=== PATIENT | male | born 1965 | race Caucasian/White ===

== ENCOUNTER 2018-08-31 14:27 | Emergency (ER) | payer MEDICAID ==
[~2018-08-31] VITALS: Ht 188 cm; Wt 140.6 kg
--- NOTE | 2018-08-31 14:46 | NUR ---
Pt walked to room with this RN. EKG done in triage.
--- NOTE | 2018-08-31 14:53 | NUR ---
Dr. Razo at bedside to evaluate pt. Pt states that he has been sick ever since he changed jobs and now works with [employer], pt states that he only wears a bandana for respiratory protection. Pt also c/o diarrhea x 2 days, denies N/V/fevers.
[2018-08-31] MEDS ORDERED: ALBUTEROL/IPRATROPIUM 2.5MG/0.5MG, 3 ML NPPB ONE (15:00)
--- NOTE | 2018-08-31 15:06 | NUR ---
Pt ambulated to XR with tech.
--- NOTE | 2018-08-31 15:15 | NUR ---
Pt ambulated after XR to bathroom and now back to room.
[2018-08-31 15:32] LABS: BASOPHILS # (AUTO) 0.03 x10^3/uL (0-0.1); BASOPHILS % (AUTO) 1 % (0-1); EOSINOPHILS # (AUTO) 0.06 x10^3/uL (0-0.4); EOSINOPHILS % (AUTO) 1 % (1-7); LYMPHOCYTES # (AUTO) 1.47 x10^3/uL (1-3.4); LYMPHOCYTES % (AUTO) 26 % (22-44); MD NO; MEAN CORPUSCULAR HEMOGLOBIN 32.3 pg (27.5-34.5); MEAN CORPUSCULAR HGB CONC 32.5 g/dL (33.2-36.2); MEAN CORPUSCULAR VOLUME 99.4 fL (81-97); MEAN PLATELET VOLUME 8.6 fL (7.4-10.4); MONOCYTES # (AUTO) 0.89 x10^3/uL (0.2-0.8); MONOCYTES % (AUTO) 15 % (2-9); NEUTROPHILS # (AUTO) 3.31 x10^3/uL (1.8-6.8); NEUTROPHILS % (AUTO) 58 % (42-75); PLATELET COUNT 161 x10^3/uL (130-400); RED BLOOD COUNT 5.77 x10^6/uL (4.38-5.82); RED CELL DISTRIBUTION WIDTH 14.1 % (9.4-14.8)
[2018-08-31] MEDS ORDERED: ALBUTEROL/IPRATROPIUM 2.5MG/0.5MG, 3 ML ONE (15:36)
[2018-08-31 15:41] LABS: ALBUMIN 3.5 g/dL (3.4-5.0); ANION GAP 6 mmol/L (5-15); CHLORIDE 111 mmol/L (98-107)
[2018-08-31 15:45] LABS: TROPONIN I < 0.015 ng/mL (0.000-0.045)
[2018-08-31 16:19] VITALS: BP 176/105
== END 2018-08-31 16:21 | disposition home or self-care (01) ==
LOC: ED 14:54
DX: J98.01 Acute bronchospasm (principal); I10 Essential (primary) hypertension; J44.9 Chronic obstructive pulmonary disease, unspecified; Z96.659 Presence of unspecified artificial knee joint
CPT/HCPCS: 36415; 71046; 80048; 82040; 84484; 85025; 93005; 94640; 99284; J7512; J7620

== ENCOUNTER 2018-10-01 07:45 | Emergency (ER) | payer MEDICAID ==
[~2018-10-01] VITALS: Ht 188 cm; Wt 143.1 kg
[2018-10-01] MEDS ORDERED: ONDANSETRON 2MG/ML, 2ML ONE (08:20)
[2018-10-01] MEDS ORDERED: KETOROLAC 30 MG/1 ML ONE (08:20)
[2018-10-01] MEDS ORDERED: MORPHINE SULFATE 4 MG/ML, 1ML ONE ×2 (08:21→09:09)
[2018-10-01 08:23] LABS: BASOPHILS # (AUTO) 0.02 x10^3/uL (0-0.1); BASOPHILS % (AUTO) 0 % (0-1); EOSINOPHILS % (AUTO) 2 % (1-7); LYMPHOCYTES # (AUTO) 0.99 x10^3/uL (1-3.4); LYMPHOCYTES % (AUTO) 17 % (22-44); MD NO; MEAN CORPUSCULAR HEMOGLOBIN 31.9 pg (27.5-34.5); MEAN CORPUSCULAR HGB CONC 32.6 g/dL (33.2-36.2); MEAN CORPUSCULAR VOLUME 97.8 fL (81-97); MEAN PLATELET VOLUME 8.8 fL (7.4-10.4); MONOCYTES # (AUTO) 0.72 x10^3/uL (0.2-0.8); MONOCYTES % (AUTO) 12 % (2-9); NEUTROPHILS # (AUTO) 4.17 x10^3/uL (1.8-6.8); NEUTROPHILS % (AUTO) 70 % (42-75); PLATELET COUNT 174 x10^3/uL (130-400); RED BLOOD COUNT 5.75 x10^6/uL (4.38-5.82); RED CELL DISTRIBUTION WIDTH 13.9 % (9.4-14.8)
[2018-10-01] MEDS: MORPHINE SULFATE 4 MG/ML, 1ML IVPush PRN ×2 (08:27→09:16)
[2018-10-01] MEDS ORDERED: SODIUM CHLORIDE FLUSH 10ML SYR IVF ONE (08:30)
[2018-10-01] MEDS ORDERED: ONDANSETRON 2MG/ML, 2ML IVPush ONE (08:30)
[2018-10-01] MEDS ORDERED: KETOROLAC 30 MG/1 ML IVPush ONE (08:30)
[2018-10-01 08:34] LABS: ALBUMIN 3.5 g/dL (3.4-5.0); ANION GAP 4 mmol/L (5-15); CALCIUM 8.8 mg/dL (8.5-10.1); CHLORIDE 108 mmol/L (98-107)
[2018-10-01 08:38] LABS: ALANINE AMINOTRANSFERASE 53 U/L (12-78); ALKALINE PHOSPHATASE 80 U/L (45-117); BILIRUBIN,TOTAL 0.9 mg/dL (0.2-1.0); CREATININE 1.04 mg/dL (0.7-1.3); TOTAL PROTEIN 6.9 g/dL (6.4-8.2)
--- NOTE | 2018-10-01 09:50 | NUR ---
REPORT RECEIVED FROM FIORELLA GEORGE
[2018-10-01] MEDS ORDERED: OXYcodone/APAP 5/325MG TABLET ONE (10:53)
[2018-10-01] MEDS ORDERED: OXYcodone/APAP 5/325MG TABLET PO ONE (11:00)
--- NOTE | 2018-10-01 11:00 | NUR ---
PATIENT REPORTING CONTINUED LEFT GROIN PAIN REFRACTORY TO EARLIER MEDICATION-RATED AT 8/10. BLOOD PRESSURE ALSO NOTED TO BE ELEVATED WELL CONTINUED OXYGEN NEED. PROVIDER MADE AWARE MEDICATED PER EMAR
[2018-10-01 11:13] LABS: MICROSCOPIC AUTO
[2018-10-01 11:16] LABS: CULTURE INDICATED? NO
[2018-10-01] MEDS ORDERED: LISINOPRIL 10 MG TABLET ONE (11:34)
--- NOTE | 2018-10-01 11:37 | NUR ---
BLOOD PRESSURE REMAINS ELEVATED (216/151)-PROVIDER MADE AWARE D/C ORDERS UP. TO START LISINOPRIL NOW AND ARRANGE F/U
--- NOTE | 2018-10-01 11:44 | NUR ---
EDUCATED ON WHAT TO WATCH FOR IN R/T LISINOPRIL ADMINISTRATION. ALSO ADVISED TO INCREASE HYDRATION/LIMIT ETOH/ILLICITS AND SMOKING. ADVISED TO RETURN TO ED IF SXS DONT IMPROVE
--- NOTE | 2018-10-01 11:48 | NUR ---
PATIENT DISCHARGED VIA BUS TO HOME DESPITE RECENT B/P MEDICATION ADMINISTRATION WELL NARCOTIC ADMINISTRATION. 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 LISINOPRIL NOT A NEW MEDICATION FOR PATIENT (HAS TAKEN PRIOR) AND NOT OVER-MEDICATED (PAIN MEDICATION) PER WRITERS EXAM. PATIENT SAFE FOR DISCHARGE
[2018-10-01 11:51] VITALS: BP 186/71
[2018-10-01] MEDS ORDERED: LISINOPRIL 10 MG TABLET PO ONE (12:00)
== END 2018-10-01 11:55 | disposition home or self-care (01) ==
LOC: ED 09:27
DX: S39.013A Strain of muscle, fascia and tendon of pelvis, initial encounter (principal); I10 Essential (primary) hypertension; R10.32 Left lower quadrant pain; J44.9 Chronic obstructive pulmonary disease, unspecified; X58.XXXA Exposure to other specified factors, initial encounter; Y93.89 Activity, other specified; Y92.89 Other specified places as the place of occurrence of the external cause; Y99.8 Other external cause status
CPT/HCPCS: 36415; 74176; 80053; 81001; 85025; 96374; 96375; 96376; 99284; J1885; J2405

== ENCOUNTER 2018-10-04 10:46 | Emergency (ER) | payer MEDICAID, OTHER ==
--- NOTE | 2018-10-04 11:50 | NUR ---
PT TO SCAN IN NAD
[2018-10-04] MEDS ORDERED: OXYcodone/APAP 5/325MG TABLET ONE (11:54)
[2018-10-04] MEDS ORDERED: OXYcodone/APAP 5/325MG TABLET PO ONE (12:00)
[2018-10-04 12:01] LABS: MICROSCOPIC AUTO
[2018-10-04 12:04] LABS: CULTURE INDICATED? NO
--- NOTE | 2018-10-04 12:26 | NUR ---
PT RETURNED FROM SCAN IN [facility], MEDICATED PER AUG, AWAITING BLOODWORK & US READ. PT REPORTS NO NEEDS AT THIS TIME, WCTM.
[2018-10-04 12:55] LABS: ALBUMIN 3.2 g/dL (3.4-5.0); ANION GAP 5 mmol/L (5-15); BASOPHILS # (AUTO) 0.03 x10^3/uL (0-0.1); BASOPHILS % (AUTO) 0 % (0-1); CALCIUM 8.7 mg/dL (8.5-10.1); CHLORIDE 108 mmol/L (98-107); EOSINOPHILS # (AUTO) 0.05 x10^3/uL (0-0.4); EOSINOPHILS % (AUTO) 0 % (1-7); LYMPHOCYTES % (AUTO) 10 % (22-44); MD NO; MEAN CORPUSCULAR HEMOGLOBIN 31.6 pg (27.5-34.5); MEAN CORPUSCULAR HGB CONC 32.2 g/dL (33.2-36.2); MEAN CORPUSCULAR VOLUME 98.3 fL (81-97); MEAN PLATELET VOLUME 9.1 fL (7.4-10.4); MONOCYTES # (AUTO) 1.12 x10^3/uL (0.2-0.8); MONOCYTES % (AUTO) 10 % (2-9); NEUTROPHILS # (AUTO) 8.49 x10^3/uL (1.8-6.8); NEUTROPHILS % (AUTO) 79 % (42-75); PLATELET COUNT 162 x10^3/uL (130-400); RED BLOOD COUNT 5.53 x10^6/uL (4.38-5.82); RED CELL DISTRIBUTION WIDTH 13.9 % (9.4-14.8)
--- NOTE | 2018-10-04 13:05 | NUR ---
Task RN: Oxygen saturation 79% on room air while sleeping, patient awakened and oxygen saturation increased to 90% on room air while talking. Supplemental oxygen provided via nasal cannula @3LPM as patient is dozing intermittently. Addendum: 10/04/[address] Mercado notified.
--- NOTE | 2018-10-04 13:10 | NUR ---
TASK RN: Patient up to restroom to urinate for post void residual check
--- NOTE | 2018-10-04 13:22 | NUR ---
Post void residual 0mL, Dr. Mercado notified.
--- NOTE | 2018-10-04 14:00 | NUR ---
PT IN BED, MD JOELLE ASH AT BEDSIDE TO MD BAM CONSULTING W/ UROLOGY, AWAITING DISPO. WCTM.
[2018-10-04 14:52] VITALS: BP 141/98
== END 2018-10-04 14:57 | disposition home or self-care (01) ==
LOC: ED 11:31
DX: N50.812 Left testicular pain (principal); J44.9 Chronic obstructive pulmonary disease, unspecified; I10 Essential (primary) hypertension
CPT/HCPCS: 36415; 76870; 80048; 81001; 82040; 85025; 99284

== ENCOUNTER 2018-11-25 14:13 | Emergency (ER) | payer MEDICAID ==
[~2018-11-25] VITALS: Ht 185.4 cm; Wt 113.6 kg
[2018-11-25 14:49] LABS: BASOPHILS # (AUTO) 0.02 x10^3/uL (0-0.1); BASOPHILS % (AUTO) 0 % (0-1); EOSINOPHILS # (AUTO) 0.12 x10^3/uL (0-0.4); EOSINOPHILS % (AUTO) 2 % (1-7); LYMPHOCYTES # (AUTO) 1.14 x10^3/uL (1-3.4); LYMPHOCYTES % (AUTO) 17 % (22-44); MD NO; MEAN CORPUSCULAR HEMOGLOBIN 31.2 pg (27.5-34.5); MEAN CORPUSCULAR VOLUME 97.6 fL (81-97); MEAN PLATELET VOLUME 9.4 fL (7.4-10.4); MONOCYTES # (AUTO) 0.78 x10^3/uL (0.2-0.8); MONOCYTES % (AUTO) 11 % (2-9); NEUTROPHILS # (AUTO) 4.87 x10^3/uL (1.8-6.8); NEUTROPHILS % (AUTO) 70 % (42-75); PLATELET COUNT 180 x10^3/uL (130-400); RED BLOOD COUNT 5.59 x10^6/uL (4.38-5.82); RED CELL DISTRIBUTION WIDTH 14.1 % (9.4-14.8)
--- NOTE | 2018-11-25 14:50 | NUR ---
BIB EMS PT SOMNULENT, ARROUSES TO AGGRESSIVE VERBAL STIMULI, FOLLOWS COMMANDS WITH REPEATED INSTRUCTIONS AND ENCOURAGEMENT. SPEECH IS VERY GARBLED BUT IT SOUNDS LIKE HE TOOK 5, 10MG XANAX BUT I CAN'T TELL WHAT HE IS SAYING TO AT WHAT TIME. PT RESP TACHYPNIC 26-30 RA PULSE OX 84% - 88% WITH PERIODS OF APNEA NOTED. 02 3L NC PLACED WITH EFFECT AND SP02 MAINTAINING AT 92-93%. PT ON MONITORS FOR ECG, PULSE OX AND BP. SITTER AT DOORWAY WITH PT IN VIEW. PT WAS ALREADY UNDRESSED AND LAYING ON GURNEY WHEN THIS RN ARRIVED AT BEDSIDE. JALYN RN HAD ASSISSTED PT IN GETTING UNDRESSED AND PLACED HIS BELONGINGS IN A PATIENT BAG. BAG LABLED AND PLACED IN LOCKER. SBAR RPT TO ARIEL HOUGH
[2018-11-25 14:59] LABS: ALBUMIN 2.9 g/dL (3.4-5.0); ANION GAP 6 mmol/L (5-15); CALCIUM 8.2 mg/dL (8.5-10.1); CHLORIDE 107 mmol/L (98-107); CREATININE 0.77 mg/dL (0.7-1.3)
[2018-11-25 15:00] LABS: SALICYLATE LEVEL < 1.7 mg/dL (2.8-20.0)
--- NOTE | 2018-11-25 15:58 | NUR ---
PT ALTERNATES BETWEEN VERY EMOTIONAL AND VERY DROWSY. PT UPSET THAT "SOMEONE TOOK HIS FOOD." PT HAS NOT BEEN GIVEN ANY FOOD YET DURING THIS STAY. PT THEN QUICKLY FALLS ASLEEP. DINNER TRAY ORDERED AT THIS TIME. URINAL PROVIDED AT BS. NO OTHER REQUESTS NOW. PT RESTING WITH EYES CLOSED AND LIGHTS DIMMED IN SECURED ROOM. ALL VSS ON RA. SITTER AT DOOR WAY FOR CONTINUOUS MONITORING.
--- NOTE | 2018-11-25 16:45 | NUR ---
PT DOZING, SIDE RAILS UP X2, MONITORING ON. SITTER AT DOORWAY.
--- NOTE | 2018-11-25 17:36 | NUR ---
PT RESTING IN SECURED ROOM WTIH EYES CLOSED AND LIGHTS DIMMED. SITTER AT DOORWAY.
--- NOTE | 2018-11-25 18:40 | NUR ---
FOOD TRAY PROVIDED. PT RESTING IN SECURED ROOM. PT DROWSY AT THIS TIME. SITER AT DOORWAY.
--- NOTE | 2018-11-25 19:13 | NUR ---
PT RESTING IN SECURED ROOM WTIH EYES CLOSED AND LIGHTS DIMMED. SITTER AT DOORWAY. STILL AWAITING URINE SAMPLE.
--- NOTE | 2018-11-25 20:00 | NUR ---
PT VERY DROWSY AT THIS TIME. ARROUSABLE ONLY TO LOUD VOICES. WHEN AWOKEN, PT MUMBLES A FEW WORDS AND IMMEDIATELY FALLS BACK TO SLEEP. PT UNABLE TO PROVIDE URINE SAMPLE AT THIS TIME. PT REMAINS CONNECTED TO MONITORS. VSS. SITTER AT DOORWAY FOR CONTINUOUS OBSERVATION.
--- NOTE | 2018-11-25 20:38 | NUR ---
SOC referral initiated.
--- NOTE | 2018-11-25 20:41 | NUR ---
pt stood at eob with assistance from 2 male staff to urinate. pt able to provide sample and sample walked to lab by this rn. pt very agitated, screaming and cussing at staff. pt upset that he did not receive dinner even though his dinner plate was behind him. pt given dinner tray and is currently eating in his room. pt continues to scream and talk to himself, but is more pleasant with staff at this time. pt provided with milk and water per request. vss. awaiting telepsych.
[2018-11-25 20:57] LABS: AMPHETAMINE SCREEN, URINE Positive (Negative); BARBITURATE SCREEN, URINE Negative (Negative); BENZODIAZEPINE SCREEN, URINE Positive (Negative); CANNABINOID SCREEN, URINE Negative (Negative); COCAINE SCREEN, URINE Negative (Negative); METHADONE SCREEN, URINE Negative (Negative); OPIATE SCREEN, URINE Negative (Negative)
[2018-11-25 21:50] VITALS: BP 108/76
--- NOTE | 2018-11-25 21:52 | NUR ---
PT VERY DROWSY AT THIS TIME. ARROUSABLE ONLY TO LOUD VOICES. WHEN AWOKEN, PT MUMBLES A FEW WORDS AND IMMEDIATELY FALLS BACK TO SLEEP. PT REMAINS CONNECTED TO MONITORS. VSS. SITTER AT DOORWAY FOR CONTINUOUS OBSERVATION.
--- NOTE | 2018-11-25 22:09 | NUR ---
REPORT FROM ARIEL HOUGH. PT SIDE LAYING IN MATT, EVEN/REGULAR RESPIRATIONS NOTED. BP/SPO2/ECG MONITORING IN PLACE. NSR ON MONITOR, HR 108, RR20 Addendum: 11/25/18 at 2210 by LWEGENER TELEPSYCH MONITOR SET UP IN ROOM. AWAITING ROSARIO.
--- NOTE | 2018-11-25 22:47 | NUR ---
REPORT TO SOC TELEPSYCH
--- NOTE | 2018-11-25 23:00 | NUR ---
NADER RN AT BEDSIDE TO ASSIST IN TELEPSYCH CONSULT. PER NADER, PT IMMEDIATEDLY STARTED YELLING, NOT COOPERATIVE WITH SOC EVAL. "I JUST WANT TO SLEEP!"
--- NOTE | 2018-11-26 00:17 | NUR ---
PT MOSTLY DROWSY, ARROUSABLE TO VOICE. PT ANSWERS FEW QUESTIONS THEN RETURNS TO SLEEP. SPO2 87-90% WHILE SLEEPING. PLACED ON 3L BY NC FOR SUPPORT WHILE ASLEEP, SPO2 TO >90%. RR WNL. WHEN ASKED WHY PT WAS NOT COOPERATIVE WITH TELE PSYCH CONSULT PT STATES "I DON'T EVEN REMEMBER THAT". PT AGREES TO PARTICIPATE IN REPEAT EVAL. WILL REQUEST TELEPSYCH CONSULT WHEN PT IS MORE ARROUSABLE W/ LONGER WAKE PERIOD.
--- NOTE | 2018-11-26 01:57 | NUR ---
PT AWAKE, YELLING AT STAFF. PT NOW DENIES SI/HI AND IS REQUESTING DC. OKAY PER ERP. PT CLOTHING RETURNED TO HIM AND PT ASKED TO DRESS SELF. CHARLY JENKINS. Addendum: 11/26/18 at 0249 by SUNDAY PT MAINTAINING RA SPO2 >90% .
--- NOTE | 2018-11-26 02:10 | NUR ---
PT ASSISTED TO DRESS. PROVIDED HOSPITAL SOCKS D/T "MY FEET HURT TOO BADLY TO PUT MY SHOES ON". HX OF GOUT. DC EDUCATION PROVIDED. PT REFUSING EDUCATION, THREW PAPERWORK INTO TRASH. PT TRANSFERED SELF TO WHEELCHAIR. WHEELED TO DC WITH RN. PROVIDED [employer]I VOUCHER FOR SAFE TRANSPORT HOME.
== END 2018-11-26 02:50 | disposition home or self-care (01) ==
LOC: MERGE 14:13 → EDBD 14:13 → ED 18:42
DX: R45.851 Suicidal ideations (principal); F11.10 Opioid abuse, uncomplicated; F10.10 Alcohol abuse, uncomplicated; Z88.0 Allergy status to penicillin
CPT/HCPCS: 36415; 80048; 80307; 82040; 85025; 99284

== ENCOUNTER 2018-12-24 00:15 | Emergency (ER) | payer MEDICAID ==
[~2018-12-24] VITALS: Ht 188 cm; Wt 123.5 kg
[2018-12-24 06:21] VITALS: BP 110/80
== END 2018-12-24 06:49 | disposition home or self-care (01) ==
LOC: ED 05:35
DX: F15.129 Other stimulant abuse with intoxication, unspecified (principal); F13.129 Sedative, hypnotic or anxiolytic abuse with intoxication, unspecified; F11.129 Opioid abuse with intoxication, unspecified; I10 Essential (primary) hypertension; J44.9 Chronic obstructive pulmonary disease, unspecified; G92 Toxic encephalopathy; Z72.9 Problem related to lifestyle, unspecified; Z91.14 Patient's other noncompliance with medication regimen; Z63.8 Other specified problems related to primary support group; Z75.9 Unspecified problem related to medical facilities and other health care
CPT/HCPCS: 36415; 80053; 80307; 85025; 99283

== ENCOUNTER 2019-07-07 13:33 | Emergency (ER) | payer MEDICAID ==
[~2019-07-07] VITALS: Ht 188 cm; Wt 142.5 kg
[2019-07-07 14:17] VITALS: BP 151/100
--- NOTE | 2019-07-07 14:27 | NUR ---
TO ROOM AT THIS TIME
[2019-07-07] MEDS ORDERED: ALBUTEROL SULFATE 2.5 MG/3 ML NPPB ONE (14:45)
[2019-07-07] MEDS ORDERED: ALBUTEROL SULFATE 2.5 MG/3 ML ONE (14:46)
--- NOTE | 2019-07-07 14:47 | NUR ---
AFTER XRAY RT AT BEDSIDE
[2019-07-07 14:58] LABS: MEAN CORPUSCULAR HEMOGLOBIN 30.8 pg (27.5-34.5); MEAN CORPUSCULAR HGB CONC 32.7 g/dL (33.2-36.2); MEAN CORPUSCULAR VOLUME 94.3 fL (81-97); MEAN PLATELET VOLUME 7.7 fL (7.4-10.4); PLATELET COUNT 203 x10^3/uL (130-400); RED BLOOD COUNT 4.78 x10^6/uL (4.38-5.82); RED CELL DISTRIBUTION WIDTH 16.2 % (9.4-14.8)
[2019-07-07] MEDS ORDERED: ALBUTEROL/IPRATROPIUM 2.5MG/0.5MG, 3 ML NPPB ONE (15:00)
[2019-07-07 15:09] LABS: ALBUMIN 2.8 g/dL (3.4-5.0); ANION GAP 8 mmol/L (5-15); CALCIUM 7.7 mg/dL (8.5-10.1); CHLORIDE 107 mmol/L (98-107); CREATININE 0.94 mg/dL (0.7-1.3)
[2019-07-07 15:35] LABS: BASOPHILS # (AUTO) 0.02 x10^3/uL (0-0.1); BASOPHILS % (AUTO) 1 % (0-1); EOSINOPHILS # (AUTO) 0.05 x10^3/uL (0-0.4); EOSINOPHILS % (AUTO) 1 % (1-7); LYMPHOCYTES % (AUTO) 27 % (22-44); MD NO; MONOCYTES # (AUTO) 0.93 x10^3/uL (0.2-0.8); MONOCYTES % (AUTO) 19 % (2-9); NEUTROPHILS # (AUTO) 2.58 x10^3/uL (1.8-6.8); NEUTROPHILS % (AUTO) 53 % (42-75)
--- NOTE | 2019-07-07 16:20 | NUR ---
RE-EVSANTIAGO. PT OUT OF BED TO BATHROOM, NO LABORED BREATHING NOTED. TO BE DISCHARGED.
== END 2019-07-07 16:35 | disposition home or self-care (01) ==
LOC: ED 16:10
DX: J98.01 Acute bronchospasm (principal); I10 Essential (primary) hypertension; J44.9 Chronic obstructive pulmonary disease, unspecified
CPT/HCPCS: 36415; 71046; 80048; 82040; 85025; 93005; 94640; 99284; J7512; J7613